=== PATIENT | female | born 1995 | race Caucasian/White ===

== ENCOUNTER → 2019-02-21 | Outpatient (CLI) | payer OTHER ==
[~2019-02-21] MED LIST: CODACE30 PO; CYCL10 PO; IBUP800 PO
[2019-02-21 15:38] LABS: BASOPHILS ABSOLUTE AUTO 0.04 K/mm3 (0.00-0.23); BASOPHILS PERCENT AUTO 0 % (0-2); EOSINOPHILS ABSOLUTE AUTO 0.06 K/mm3 (0.00-0.68); EOSINOPHILS PERCENT AUTO 0 % (0-6); Hematocrit 40.3 % (33.0-51.0); Hemoglobin 13.5 g/dL (11.5-16.0); IMMATURE GRAN ABSOLUTE AUTO 0.06 K/mm3 (0.00-0.10); IMMATURE GRAN PERCENT AUTO 0 % (0-1); LYMPHOCYTES ABSOLUTE AUTO 1.56 K/mm3 (0.84-5.20); LYMPHOCYTES PERCENT AUTO 11 % (21-46); MONOCYTES ABSOLUTE AUTO 0.66 K/mm3 (0.16-1.47); MONOCYTES PERCENT AUTO 5 % (4-13); Mean Corpuscular HGB 28.8 pg (26.0-34.0); Mean Corpuscular HGB Conc 33.5 g/dL (31.5-36.5); Mean Corpuscular Volume 86 fL (80-100); Mean Platelet Volume 11.5 fL (9.1-12.4); NEUTROPHILS ABSOLUTE AUTO 11.66 K/mm3 (1.96-9.15); NEUTROPHILS PERCENT AUTO 83 % (41-73); Platelet Count 252 K/mm3 (150-400); RDW Coefficient Variation 14.5 % (11.7-14.2); RDW Standard Deviation 45.2 fL (35.1-46.3); Red Blood Cell Count 4.68 M/mm3 (3.80-5.20); White Blood Cell Count 14.04 K/mm3 (4.00-11.30)
[2019-02-21 15:56] LABS: Alanine Aminotransfer (ALT/SGP 26 U/L (12-78); Albumin, Blood 4.4 g/dL (3.4-5.0); Albumin/Globulin Ratio 1.2 (0.8-1.8); Alk Phos 63 U/L (40-126); Anion Gap 16 mmol/L (6-16); Aspartate Aminotrans (AST/SGOT 14 U/L (12-37); Bilirubin, Total 0.8 mg/dL (0.1-1.0); Blood Urea Nitrogen 10 mg/dL (8-24); Bun/Creatinine Ratio 13.7 (12.0-20.0); CO2, Blood 23 mmol/L (21-32); Calcium, Blood 9.1 mg/dL (8.5-10.1); Chloride, Blood 99 mmol/L (98-108); Creatinine, Blood 0.73 mg/dL (0.40-1.00); Globulin, Blood 3.7 g/dL (2.2-4.0); Glomerular Filtration Rate >60 (60-); Glucose, Blood 72 mg/dL (70-99); Sodium, Blood 138 mmol/L (136-145); Thyroid Stimulating Hormone 0.082 uIU/mL (0.360-4.800); Total Protein, Blood 8.1 g/dL (6.4-8.2)
== END | disposition home or self-care (01) ==
LOC: LAB EV 15:29 → LAB SHORT 15:29
PROVIDERS: Physician Assistant Medical
DX: R53.83 Other fatigue (principal); R79.89 Other specified abnormal findings of blood chemistry
CPT/HCPCS: 80053; 84439; 84443; 84481; 85025

== ENCOUNTER 2019-05-07 08:09 | Day surgery (SDC) | payer OTHER ==
[~2019-05-07] VITALS: Ht 175.3 cm; Wt 61.5 kg
--- NOTE | 2019-05-07 09:58 | NUR ---
05/07/19 0958 Malathi Obregon [facility].JLF UPPER PREP, ORSC.JAR LOWER PREP.
== END 2019-05-07 12:05 | disposition home or self-care (01) ==
LOC: ORSCSDS 08:09
PROVIDERS: Obstetrics & Gynecology
PROC: 0U5F4ZZ Destruction of Cul-de-sac, Percutaneous Endoscopic Approach (ICD-10-PCS; principal; 2019-05-07 09:45)
DX: N92.0 Excessive and frequent menstruation with regular cycle (principal); N94.6 Dysmenorrhea, unspecified; N94.10 Unspecified dyspareunia; R10.2 Pelvic and perineal pain; K66.0 Peritoneal adhesions (postprocedural) (postinfection)
CPT/HCPCS: J0690; J1100; J1885; J2250; J2405; J2704; J2710; J3010; J7120

== ENCOUNTER 2020-08-22 06:12 | Day surgery (SDC) | payer OTHER ==
[~2020-08-22] VITALS: Ht 172.7 cm; Wt 67.2 kg
[~2020-08-22 06:12] MED LIST changes: +Clomiphene Citr50 MG PO; +HYDR1TAB94 PO
--- NOTE | 2020-08-22 09:39 | NUR ---
08/22/20 0939 Malathi Robb PT REPORTS PAIN IN R SHOULDER AND ABDOMEN OF 03/02. MEDICATED WITH FENTANYL 25MCG IVP PER ORDERS. VSS. AT BEDSIDE. WILL CONTINUE TO MONITOR.
--- NOTE | 2020-08-22 10:27 | NUR ---
08/22/20 1027 GLENYS JOEL PATIENT PRESENTED TO PACU WITH SWOLLEN UPPER LEFT SIDE OF LIP.ORSC.RDS
== END 2020-08-22 10:14 | disposition home or self-care (01) ==
LOC: ORSCSDS 06:12
PROVIDERS: Obstetrics & Gynecology
PROC: 0U5F4ZZ Destruction of Cul-de-sac, Percutaneous Endoscopic Approach (ICD-10-PCS; principal; 2020-08-22 07:30)
DX: N92.0 Excessive and frequent menstruation with regular cycle (principal); N80.3 Endometriosis of pelvic peritoneum; N94.6 Dysmenorrhea, unspecified; K66.0 Peritoneal adhesions (postprocedural) (postinfection); N94.10 Unspecified dyspareunia; R10.2 Pelvic and perineal pain
CPT/HCPCS: A9270; J0171; J0690; J1100; J1885; J2250; J2405; J2704; J3010; J7120

== ENCOUNTER 2022-02-06 22:16 | Inpatient (IN) | payer OTHER ==
[~2022-02-06] VITALS: Ht 175.3 cm; Wt 70.5 kg
[2022-02-06] MEDS ORDERED: PRENATAL TABLE1 EAC2 (22:51)
--- NOTE | 2022-02-07 13:42 | NUR ---
PT CRAMPY, HAVE GIVEN MOTRIN, NOT WORKING YET, GAVE PT HEAT PAD TO USE, WARMING UP
--- NOTE | 2022-02-07 15:08 | NUR ---
PT CONTINUES TO BE VERY CRAMPY, HEATING PAD ISNT WORKING, MEDICATED WITH TYLENOL
--- NOTE | 2022-02-07 17:20 | NUR ---
PT REPORTS THE CRAMPING IS BETTER, STILLUSING THE HEAT PAD
--- NOTE | 2022-02-07 18:23 | NUR ---
jaycee christianson here to see pt, aware of pt cramping and that she is taking motrin and tylenol with using a heating pad. pt has a hx of endometrosis
--- NOTE | 2022-02-07 22:16 | NUR ---
DISCHARGE TEACHING TEACHING COMPLETED WITH PT AND , BOTH VERBALIZE UNDERSTANDING AND HAVE NO FURTHER QUESTIONS OR CONCERNS
== END 2022-02-07 22:55 | disposition home or self-care (01) | DRG 807 ==
LOC: OBS 22:16 → BC 22:23
PROVIDERS: ADMIT Advanced Practice Midwife
PROC: 10E0XZZ Delivery of Products of Conception, External Approach (ICD-10-PCS; principal; 2022-02-06)
DX: O70.9 Perineal laceration during delivery, unspecified (principal); Z37.0 Single live birth; Z3A.39 39 weeks gestation of pregnancy; Z79.899 Other long term (current) drug therapy
CPT/HCPCS: 36415; 90715; A9270; J2210; J2590

== ENCOUNTER 2022-08-20 11:22 | Day surgery (SDC) | payer OTHER ==
[2022-08-18 10:42] LABS: BASOPHILS ABSOLUTE AUTO 0.06 K/mm3 (0.00-0.23); BASOPHILS PERCENT AUTO 1 % (0-2); EOSINOPHILS ABSOLUTE AUTO 0.44 K/mm3 (0.00-0.68); EOSINOPHILS PERCENT AUTO 6 % (0-6); Hematocrit 43.3 % (33.0-51.0); Hemoglobin 13.7 g/dL (11.5-16.0); IMMATURE GRAN ABSOLUTE AUTO 0.02 K/mm3 (0.00-0.10); IMMATURE GRAN PERCENT AUTO 0 % (0-1); LYMPHOCYTES ABSOLUTE AUTO 2.57 K/mm3 (0.84-5.20); LYMPHOCYTES PERCENT AUTO 35 % (21-46); MONOCYTES PERCENT AUTO 5 % (4-13); Mean Corpuscular HGB 27.8 pg (26.0-34.0); Mean Corpuscular HGB Conc 31.6 g/dL (31.5-36.5); Mean Corpuscular Volume 88 fL (80-100); NEUTROPHILS ABSOLUTE AUTO 3.91 K/mm3 (1.96-9.15); NEUTROPHILS PERCENT AUTO 53 % (41-73); Platelet Count 324 K/mm3 (150-400); RDW Coefficient Variation 13.6 % (11.7-14.2); RDW Standard Deviation 43.8 fL (35.1-46.3); Red Blood Cell Count 4.92 M/mm3 (3.80-5.20)
[~2022-08-20] VITALS: Ht 175.3 cm; Wt 75.8 kg
[~2022-08-20 11:22] MED LIST changes: +Acerola C500 MG PO; +PRENATAL TABLE1 EAC2
--- NOTE | 2022-08-20 19:00 | NUR ---
PT ARRIVED TO ROOM POST OP. PT SCOOTED SELF TO BED. PEARL IN PLACE. POST OP FLUIDS INFUSING. LAP INCISIONS X4, WITHOUT DRAINAGE. JITENDRA PAD IN PLACE, CDI. PT DENIES NAUSEA. WATER AND JELLO GIVEN. VSS. CALL LIGHT IN REACH. SIG OTHER AND CHILD AT BEDSIDE. WILL REPORT TO OPAL RN.
--- NOTE | 2022-08-21 03:51 | NUR ---
SHIFT SUMMARY PT POD 0 LAP HYSTERECTOMY. SHE HAS DONE WELL OVERNIGHT, INTERMITTENT PAIN RELIEVED WITH OXYCODONE. TOLERATING PO INTAKE. PT WANTED TO KEEP PEARL IN A LITTLE BIT LONGER AFTER ARRIVING BACK TO THE UNIT SHE WAS STILL HAVING SOME PAIN AND DID NOT FEEL COMFORTABLE AMBULATING. PEARL REMOVED THIS AM. PLAN IS FOR DISCHARGE TODAY. BED IN LOWEST POSITION, CALL LIGHT WIHTIN REACH.
[2022-08-21 04:35] LABS: BASOPHILS ABSOLUTE AUTO 0.04 K/mm3 (0.00-0.23); BASOPHILS PERCENT AUTO 0 % (0-2); EOSINOPHILS ABSOLUTE AUTO 0.01 K/mm3 (0.00-0.68); EOSINOPHILS PERCENT AUTO 0 % (0-6); Hematocrit 38.4 % (33.0-51.0); Hemoglobin 12.8 g/dL (11.5-16.0); IMMATURE GRAN ABSOLUTE AUTO 0.04 K/mm3 (0.00-0.10); IMMATURE GRAN PERCENT AUTO 0 % (0-1); LYMPHOCYTES ABSOLUTE AUTO 1.87 K/mm3 (0.84-5.20); LYMPHOCYTES PERCENT AUTO 17 % (21-46); MONOCYTES ABSOLUTE AUTO 0.64 K/mm3 (0.16-1.47); MONOCYTES PERCENT AUTO 6 % (4-13); Mean Corpuscular HGB Conc 33.3 g/dL (31.5-36.5); Mean Corpuscular Volume 87 fL (80-100); NEUTROPHILS ABSOLUTE AUTO 8.39 K/mm3 (1.96-9.15); NEUTROPHILS PERCENT AUTO 76 % (41-73); Platelet Count 321 K/mm3 (150-400); RDW Coefficient Variation 13.9 % (11.7-14.2); Red Blood Cell Count 4.42 M/mm3 (3.80-5.20); White Blood Cell Count 10.99 K/mm3 (4.00-11.30)
[2022-08-21] MEDS ORDERED: Percocet 5-3251 EACH PO (11:42)
[2022-08-21] MEDS ORDERED: IBUP400 PO (11:42)
[2022-08-21] MEDS ORDERED: PROM25 PO (11:43)
[2022-08-21] MEDS ORDERED: SIME80CH PO (11:43)
--- NOTE | 2022-08-21 12:05 | NUR ---
discharged reviewed dc instructions w/pt; verbalized understanding. dc'd ivs, catheters intact. pt left unit in wc, had abdominal binder on, w/possessions and dc paperwork, accompanied by spouse to ride waiting outside.
== END 2022-08-21 12:07 | disposition home or self-care (01) ==
LOC: ORSCMMR 11:22 → SURS 19:20 → ORSCMMR 08-21 12:07 → ORD 11-04 11:15
PROVIDERS: Obstetrics & Gynecology
PROC: 0UNF4ZZ Release Cul-de-sac, Percutaneous Endoscopic Approach (ICD-10-PCS; principal; 2022-08-20 13:00)
PROC: 0UT74ZZ Resection of Bilateral Fallopian Tubes, Percutaneous Endoscopic Approach (ICD-10-PCS; principal; 2022-08-20 13:00)
PROC: 0UT94ZZ Resection of Uterus, Percutaneous Endoscopic Approach (ICD-10-PCS; principal; 2022-08-20 13:00)
PROC: 0UT14ZZ Resection of Left Ovary, Percutaneous Endoscopic Approach (ICD-10-PCS; principal; 2022-08-20 13:00)
DX: N92.1 Excessive and frequent menstruation with irregular cycle (principal); N80.329 Endometriosis of the posterior cul-de-sac, unspecified depth; N94.6 Dysmenorrhea, unspecified; N94.10 Unspecified dyspareunia
CPT/HCPCS: 58571; S2900; 36415; 84702; 85025; 86850; 86900; 86901; 88305; 88307; A9270; J0690; J1100; J1885; J2250; J2405; J2704; J3010; J7050; J7120